=== PATIENT | female | born 1955 | race Caucasian/White ===

== ENCOUNTER 2017-06-20 06:17 | Day surgery (SDC) | payer OTHER ==
[2017-06-20] MEDS ORDERED: PROPOFOL 80 ML (07:42)
== END 2017-06-20 15:22 | disposition home or self-care (01) ==
LOC: GIL 06:17
DX: Z12.11 Encounter for screening for malignant neoplasm of colon (principal); K21.9 Gastro-esophageal reflux disease without esophagitis; K29.70 Gastritis, unspecified, without bleeding; D12.5 Benign neoplasm of sigmoid colon; C20 Malignant neoplasm of rectum; E11.9 Type 2 diabetes mellitus without complications; I10 Essential (primary) hypertension
CPT/HCPCS: 43239; 82962; 88305; 88312